=== PATIENT | male | born 1990 | race Caucasian/White ===

== ENCOUNTER 2017-04-17 19:17 | Emergency (ER) | payer OTHER ==
[2017-04-17 20:18] VITALS: BP 129/77
[2017-04-17] MEDS ORDERED: BENZONATATE 100 MG CAPSULE PO ONE (20:29)
--- NOTE | 2017-04-17 20:34 | ER Document Report ---
HPI - HPI Patient complains to provider of: cough Pain Level: 3 Context: Patient is a 26-year-old male that comes emergency department for chief complaint of heart cough with rib pain. He states he has coughed so hard he almost passed out once. He denies vomiting. He denies shortness of breath except for coughing episodes. He denies fever. Multiple sick family members. He smokes marijuana, denies cigarettes. He denies any daily medications. Past Medical History - General Information source: Patient - Social History Smoking Status: Never Smoker Drug Abuse: Marijuana Lives with: Family Family History: Reviewed & Not Pertinent - Medical History Medical History: Negative Surgical Hx: Negative - Immunizations Immunizations up to date: Yes Hx Diphtheria, Pertussis, Tetanus Vaccination: Yes Vertical Provider Document - CONSTITUTIONAL General Appearance: WD/WN, Mild Distress - patient with painful appearing coughing fits but is otherwise in no distress - INFECTION CONTROL TRAVEL OUTSIDE OF THE [place] IN LAST 30 DAYS: No - HEENT HEENT: Atraumatic, Normocephalic. negative: Normal ENT Exam - Minimal pharyngeal erythema, normal oral pharyngeal and ENT exam otherwise - NECK Neck: Normal Inspection - RESPIRATORY Respiratory: Breath Sounds Normal, No Respiratory Distress, Other - Painful appearing coughing fits, otherwise clear lung sounds with no wheezing, rhonchi, rales, or other abnormality. No tachypnea or respiratory distress O2 Sat by Pulse Oximetry: 97 - CARDIOVASCULAR Cardiovascular: Regular Rate, Regular Rhythm - GI/ABDOMEN Gastrointestinal: Abdomen Soft, Abdomen Non-Tender - MUSCULOSKELETAL/EXTREMETIES Musculoskeletal/Extremeties: MAEW, FROM, Non-Tender - NEURO Level of Consciousness: Awake, Alert - DERM Integumentary: Warm, Dry, No Rash Course - Vital Signs Vital signs: Temp Pulse Resp BP Pulse Ox 98.7 F 58 L 20 129/77 H 97 04/17/17 20:16 04/17/17 20:16 04/17/17 20:16 04/17/17 20:16 04/17/17 20:16 - Diagnostic Test Radiology reviewed: Image reviewed, Reports reviewed Discharge - Discharge Clinical Impression: Cough, Rib pain Upper respiratory infection Qualifiers: URI type: unspecified URI Qualified Code(s): J06.9 - Acute upper respiratory infection, unspecified Condition: Stable Disposition: HOME, SELF-CARE Additional Instructions: Your examination and workup are consistent with bronchitis but no evidence of pneumonia, fracture, or other concerning abnormality is seen. Your symptoms should gradually resolve with time. Take the Tessalon for cough during the day, take the syrup if needed at night for cough, take the prednisone as prescribed, drink plenty of fluids and rest. Follow-up with primary care. Return for any concerning or worsening symptoms including difficulty breathing, spiking fever, etc. Prescriptions: Hydrocodone Bit/Homatropine [Hycodan Syrup 5-1.5 mg/5 ml Ud Cup] 5 ml PO Q4HP PRN #120 ml PRN Reason: Benzonatate [Tessalon Perle 100 mg Capsule] 100 mg PO Q8HP PRN #20 cap PRN Reason: Prednisone [Deltasone 10 mg Tablet] 10 mg PO ASDIR PRN #21 tablet PRN Reason:
--- NOTE | 2017-04-17 21:01 | RADIOLOGY REPORT (SQ) ---
EXAM DESCRIPTION: CHEST PA/LAT COMPLETED DATE/TIME: 04/17/2017 8:46 pm REASON FOR STUDY: hard cough, left side pain COMPARISON: None. EXAM PARAMETERS: NUMBER OF VIEWS: two views TECHNIQUE: Digital Frontal and Lateral radiographic views of the chest acquired. RADIATION DOSE: NA LIMITATIONS: none FINDINGS: LUNGS AND PLEURA: No opacities, masses or pneumothorax. No pleural effusion. MEDIASTINUM AND HILAR STRUCTURES: No masses or contour abnormalities. HEART AND VASCULAR STRUCTURES: Heart normal size. No evidence for failure. BONES: No acute findings. HARDWARE: None in the chest. OTHER: No other significant finding. IMPRESSION: NO SIGNIFICANT RADIOGRAPHIC FINDING IN THE CHEST. TECHNICAL DOCUMENTATION: JOB ID: [id number] [employer]- All Rights Reserved
[2017-04-17] MEDS ORDERED: PREDNISONE 20 MG TABLET PO ONE (21:12)
== END 2017-04-17 21:20 | disposition home or self-care (01) ==
LOC: ER 19:17
DX: J06.9 Acute upper respiratory infection, unspecified (principal); R05 Cough; R07.81 Pleurodynia; F12.10 Cannabis abuse, uncomplicated
CPT/HCPCS: 99283; 71046; J7512

== ENCOUNTER 2019-03-07 13:48 | Emergency (ER) | payer OTHER ==
[2019-03-07 14:39] VITALS: BP 128/78
--- NOTE | 2019-03-07 15:24 | RADIOLOGY REPORT (SQ) ---
EXAM DESCRIPTION: SHOULDER LEFT 2 OR MORE VIEWS COMPLETED DATE/TIME: 03/07/2019 3:00 pm REASON FOR STUDY: left shoulder pain COMPARISON: None. NUMBER OF VIEWS: Three views. TECHNIQUE: Internal rotation, external rotation, and Y view images acquired of the left shoulder. LIMITATIONS: None. FINDINGS: MINERALIZATION: Normal. BONES: No acute fracture. No worrisome bone lesions. JOINTS: No dislocation. VISUALIZED LUNGS AND RIBS: No pneumothorax. No rib fracture. SOFT TISSUES: No radiopaque foreign body. OTHER: No other significant finding. IMPRESSION: NEGATIVE STUDY OF THE LEFT SHOULDER. NO RADIOGRAPHIC EVIDENCE OF ACUTE INJURY. TECHNICAL DOCUMENTATION: JOB ID: [id number] [employer]- All Rights Reserved Reading location - IP/workstation name: [email or web address]
[2019-03-07] MEDS ORDERED: IBUPROFEN 600 MG TABLET PO ONE (15:55)
[2019-03-07] MEDS ORDERED: ACETAMINOPHEN 325 MG TABLET PO ONE (15:55)
--- NOTE | 2019-03-07 15:55 | ER Document Report ---
HPI - HPI Time Seen by Provider: 03/07/19 14:36 Pain Level: 3 Context: Patient is a 28-year-old male who presents to the emergency department with left shoulder pain. Patient states that he has had his shoulder pain for the past 7 weeks. He did not see a primary care provider for this issue. - CONSTITUTIONAL Constitutional: DENIES: Fever, Chills - RESPIRATORY Respiratory: DENIES: Trouble Breathing, Coughing - GASTROINTESTINAL Gastrointestinal: DENIES: Abdominal Pain, Nausea, Patient vomiting - MUSCULOSKELETAL Musculoskeletal: REPORTS: Extremity pain - Left shoulder - DERM Skin Color: Normal Skin Problems: None Past Medical History - General Information source: Patient - Social History Smoking Status: Never Smoker Frequency of alcohol use: None Drug Abuse: None Family History: Reviewed & Not Pertinent Patient has suicidal ideation: No Patient has homicidal ideation: No Renal/ Medical History: Denies: Hx Peritoneal Dialysis - Immunizations Immunizations up to date: Yes Hx Diphtheria, Pertussis, Tetanus Vaccination: Yes Vertical Provider Document - CONSTITUTIONAL Agree With Documented VS: Yes Exam Limitations: No Limitations General Appearance: No Apparent Distress - INFECTION CONTROL TRAVEL OUTSIDE OF THE [place] IN LAST 30 DAYS: No - HEENT HEENT: Atraumatic, Normocephalic, PERRLA - NECK Neck: Normal Inspection - RESPIRATORY Respiratory: Breath Sounds Normal, No Respiratory Distress - CARDIOVASCULAR Cardiovascular: Regular Rate, Regular Rhythm Pulses: Normal: Radial - MUSCULOSKELETAL/EXTREMETIES Musculoskeletal/Extremeties: FROM, Tender - Left shoulder, No Edema - NEURO Level of Consciousness: Awake, Alert, Appropriate Motor/Sensory: No Motor Deficit, No Sensory Deficit - DERM Integumentary: Warm, Dry, No Rash Course - Re-evaluation Re-evalutation: 03/07/19 Patient's x-ray of his left shoulder is negative for any acute findings. Patient will be placed in a sling for comfort. Instructed patient on ibuprofen and Tylenol for pain relief. He will also receive Robaxin as needed for muscle pain. Very low suspicion for any life-threatening etiology at this time. No vascular compromise noted. Radial pulse 2+. Capillary refill less than 3 seconds. Follow-up precautions were given. Verbal discharge instructions were given to the patient. They verbalized understanding. They are stable for discharge. - Vital Signs Vital signs: Temp Pulse Resp BP Pulse Ox 98.5 F 77 18 128/78 H 99 03/07/19 14:38 03/07/19 14:38 03/07/19 14:38 03/07/19 14:38 03/07/19 14:38 Discharge - Discharge Clinical Impression: Left shoulder pain Qualifiers: Chronicity: acute Qualified Code(s): M25.512 - Pain in left shoulder Condition: Stable Disposition: HOME, SELF-CARE Additional Instructions: You are seen today in the emergency department for left shoulder pain. You are being placed in a sling. There is no fracture noted in your x-ray. Please follow-up with a primary care provider regards to this visit. Take ibuprofen 600 mg and acetaminophen 1000 mg every 6 hours as needed for your pain. You can also take Robaxin, a muscle relaxer, medication prescribed to you for pain. Please only take this as night as needed for sleep. Prescriptions: Methocarbamol [Robaxin 500 mg Tablet] 500 mg PO QHS PRN #10 tablet PRN Reason: Referrals: [facility] [Provider Group] - Follow up as needed
== END 2019-03-07 16:00 | disposition home or self-care (01) ==
LOC: ER 13:48
DX: M25.512 Pain in left shoulder (principal)
CPT/HCPCS: 99283